=== PATIENT | female | born 1950 | race Caucasian/White ===

== ENCOUNTER 2017-08-20 13:06 | Emergency (ER) | payer OTHER ==
[~2017-08-20] VITALS: Ht 165.1 cm; Wt 79.8 kg
[2017-08-20 13:35] LABS: *BILIRUBIN,URIN NEGATIVE (NEGATIVE); *BLOOD, URINE 1+ (NEGATIVE); *COLOR,URINE YELLOW (YELLOW); *KETONES,URINE NEGATIVE (NEGATIVE); *PROTEIN,URINE NEGATIVE (NEGATIVE); *UROBILINOGEN,URINE 0.2 E.U./dl (NORMAL); LEUKOCYTE ESTERASE ,URINE 1+ (NEGATIVE); NITRITE, URINE NEGATIVE (NEGATIVE); PH,URINE 5.5 (5.0-8.0); UGLUCOSE NEGATIVE (NEGATIVE)
[2017-08-20 13:36] LABS: *CLARITY,URINE SLIGHTLY HAZY (CLEAR)
[2017-08-20 13:42] LABS: BACTERIA,URINE NONE SEEN /HPF (NONE SEEN); SQUAMOUS EPITHELIAL CELL,UR FEW /HPF (NONE SEEN)
--- NOTE | 2017-08-20 13:43 | NUR ---
hands off report given madina willis
[2017-08-20] MEDS ORDERED: HYDROCODONE/APAP 5-325MG TABLET PO ONE ×2 (14:15→18:30)
--- NOTE | 2017-08-20 14:15 | NUR ---
Dr. Alexis at bedside for MSE.
[2017-08-20] MEDS ORDERED: HYDROCODONE/APAP 5-325MG TABLET ONE ×2 (14:17→18:26)
[2017-08-20] MEDS ORDERED: ONDANSETRON 4 MG/2 ML VIAL IV ONE ×2 (14:30→18:30)
[2017-08-20] MEDS ORDERED: MORPHINE SULFATE 2 MG/1 ML DISP.SYRIN IV ONE ×2 (14:30→18:30)
[2017-08-20 14:40] LABS: BASOPHILS % (AUTO) 0.3 % (0.0-2.0); EOSINOPHILS # (AUTO) 0.2 K/uL (0.0-0.7); EOSINOPHILS % (AUTO) 1.9 % (0.0-7.0); HEMATOCRIT 44.7 % (31.2-41.9); HEMOGLOBIN 15.3 g/dL (10.9-14.3); LYMPHOCYTES # (AUTO) 1.7 K/uL (20.0-40.0); LYMPHOCYTES % (AUTO) 14.8 % (20.5-51.5); MEAN CORPUSCULAR HEMOGLOBIN 31.8 uug (24.7-32.8); MEAN CORPUSCULAR HGB CONC 34 g/dL (32.3-35.6); MONOCYTES # (AUTO) 1.2 K/uL (2.0-10.0); NEUTROPHILS # (AUTO) 8.4 K/uL (1.8-8.9); PLATELET COUNT (AUTO) 155 K/uL (179-408); RED BLOOD CELL COUNT(AUTO) 4.81 MIL/uL (3.63-4.92); WHITE BLOOD COUNT (AUTO) 11.5 K/uL (3.8-11.8)
[2017-08-20] MEDS ORDERED: ONDANSETRON 4 MG/2 ML VIAL ONE ×2 (14:40→18:26)
[2017-08-20] MEDS ORDERED: MORPHINE SULFATE 4 MG/1 ML DISP.SYRIN ONE ×2 (14:40→18:25)
[2017-08-20 14:50] LABS: CREATININE 1.7 mg/dL (0.6-1.3)
[2017-08-20 14:56] LABS: BILIRUBIN,DIRECT 0.1 mg/dL (0.0-0.2); BILIRUBIN,TOTAL 0.5 mg/dL (0.2-1.0); TOTAL PROTEIN, SERUM 7.8 g/dL (6.4-8.2)
[2017-08-20] MEDS ORDERED: TAMSULOSIN HCL 0.4 MG CAP.SR.24H PO ONE (17:45)
[2017-08-20] MEDS ORDERED: IV NORMAL SALINE 1000 ML BAG IV ONE (17:45)
[2017-08-20] MEDS ORDERED: TAMSULOSIN HCL 0.4 MG CAP.SR.24H ONE (17:52)
--- NOTE | 2017-08-20 18:53 | NUR ---
PT AMBULATED TO BATHROOM WITH STEADY GAIT
--- NOTE | 2017-08-20 18:57 | NUR ---
Patient discharged to home in stable conditon. Written and verbal after care instructions given. Patient verbalizes understanding of instructions.PT WITH DAUGHTER, UNDERSTANDS NEEDS TO FOLLOW UP. THE COPY OF ALL THE STUDIES PROVIDED FOR FOLLOW UP
[2017-08-20 18:59] VITALS: BP 138/71
== END 2017-08-20 19:00 | disposition home or self-care (01) ==
LOC: EDBD 13:08 → ER 13:08
DX: N23 Unspecified renal colic (principal); N13.2 Hydronephrosis with renal and ureteral calculous obstruction; D69.6 Thrombocytopenia, unspecified; K57.30 Diverticulosis of large intestine without perforation or abscess without bleeding
CPT/HCPCS: 36415; 74176; 80048; 80076; 81001; 83690; 85025; 96374; 96375; 99285; A4663; J2270 ×2; J2405; J7030